=== PATIENT | male | born 1975 | race Caucasian/White ===

== ENCOUNTER → 2019-02-03 08:00 | Outpatient (CLI) | payer BC, SELFPAY ==
--- NOTE | 2019-02-03 08:12 | CT_ITS ---
STUDY: CT CHEST WITH CONTRAST REASON FOR EXAM: Male, 43 years old. Hypoxemia. Dyspnea. RADIATION DOSAGE (If Supplied By Facility): CTDIvol = ( 22.24 ) mGy, DLP = ( 1059.27 ) mGycm TECHNIQUE: Transaxial imaging was performed following intravenous administration of Isovue 300 100 IV. Individualized dose optimization techniques were used for this CT. COMPARISON: None. FINDINGS: There is hyperinflation of the lungs consistent with chronic obstructive lung disease (COPD). No infiltrates. Slight subsegmental atelectasis or scar in the left lung base. No effusions. There is no demonstrated pleural abnormality. Normal heart and pericardium. Normal mediastinum. Normal hilar regions. Normal enhanced pulmonary arteries. Normal aorta arch and descending thoracic aorta. There are no demonstrated pulmonary emboli. There are multi-level degenerative changes of the thoracic spine. There is no demonstrated abnormality of the visualized upper abdomen. CT/Chest WITH Contrast IMPRESSION: No definite acute chest disease. Mild atelectasis or scarring in the left lung base. Electronically Signed: Devin Wilson MD at 15:17 EDT , Service support ,
== END ==
PROVIDERS: Family Provider Nurse Practitioner Primary Care; PCP Nurse Practitioner Primary Care; Referring Provider Internal Medicine Pulmonary Disease; Visit Provider Internal Medicine Pulmonary Disease
DX: R09.02 Hypoxemia (principal); R06.00 Dyspnea, unspecified; R06.89 Other abnormalities of breathing
CPT/HCPCS: 71260; Q9967

== ENCOUNTER → 2019-05-19 12:37 | Outpatient (CLI) | payer BC, SELFPAY ==
--- NOTE | 2019-05-19 12:53 | ECHOD_ITS ---
Version 2 Reason For Study: PHTN Procedure This was a 2D Doppler, Color Flow transthoracic echocardiogram. Technically difficult study due to patient body habitus and corrective Pectus Excavatum surgery. Patient refused the use of Definity even after being explained the benefits for this test. as well as a refusal for an agitated saline study due to fear of IV. Exam performed in department. Left Ventricle Normal LV size. Mild concentric left ventricular hypertrophy. Left ventricular systolic function is normal. The estimated ejection fraction is 55 %. No regional wall motion abnormalities noted. Right Ventricle Normal RV size. Normal systolic function. Atria Normal left atrium. Normal right atrium. Mitral Valve Normal mitral valve. Tricuspid Valve Normal tricuspid valve. Unable to estimate RV systolic pressure due to inadequate jet, pulmonary artery pressure probably normal. Aortic Valve The aortic valve is not well visualized. Pulmonic Valve The pulmonic valve is not well visualized. Great Vessels Normal aortic root. The pulmonary artery is normal size. Normal inferior vena cava. Pericardium/Pleural No pericardial effusion. MMode/2D Measurements & Calculations LVIDd: 5.0 cm IVSd: 1.2 cm LAV(MOD-bp): 97.0 ml LVIDs: 3.1 cm LVPWd: 1.3 cm LAV(MOD-bp) Indexed: 38.4 ml/m2 RVDd: 4.0 cm FS: 36.6 % LAV(MOD-sp2): 86.4 ml LAV(MOD-sp4): 93.4 ml LA A4 area: 27.9 cm2 RA A4 area: 20.1 cm2 Time Measurements MV dec time: 0.28 sec Doppler Measurements & Calculations MV E max angel luis: 69.1 cm/sec Lat Peak E' Angel Luis: 13.5 cm/sec Med Peak E' Angel Luis: 12.8 cm/sec MV A max angel luis: 69.5 cm/sec E/E' lat: 5.1 E/E' med: 5.4 MV E/A: 0.99 MV V2 max: 76.1 cm/sec MV P1/2t max angel luis: 78.0 cm/sec Ao V2 max: 134.8 cm/sec MV max P.3 mmHg MV P1/2t: 78.3 msec Ao max P.3 mmHg MV V2 mean: 43.7 cm/sec MV dec slope: 292.0 cm/sec2 MV mean P.89 mmHg MV V2 VTI: 24.3 cm MVA(P1/2t): 2.8 cm2 LV V1 max: 114.7 cm/sec PA V2 max: 78.0 cm/sec LV V1 max P.3 mmHg Interpretation Summary Normal LV size. Mild concentric left ventricular hypertrophy. Left ventricular systolic function is normal. The study was technically difficult. Ordering Physician: Darren Rodriguez Referring Physician: Darren Rodriguez V Performed By: Juanpablo Cook RCS
== END ==
PROVIDERS: Family Provider Nurse Practitioner Primary Care; PCP Nurse Practitioner Primary Care; Referring Provider Internal Medicine Pulmonary Disease; Visit Provider Internal Medicine Pulmonary Disease
DX: R06.00 Dyspnea, unspecified (principal); R09.02 Hypoxemia
CPT/HCPCS: 93306